=== PATIENT | male | born 1945 | race Caucasian/White ===

== ENCOUNTER 2021-07-27 01:52 | Outpatient (CLI) | payer MEDICARE, SELFPAY ==
[2021-07-27 10:23] LABS: Source Nasal/Nares
[2021-07-27 16:48] LABS: COVID-19 PCR Negative (Negative)
== END 2021-07-27 01:53 | disposition home or self-care (01) ==
PROVIDERS: Visit Provider Ophthalmology
DX: Z20.822 Contact with and (suspected) exposure to COVID-19 (principal); Z01.818 Encounter for other preprocedural examination
CPT/HCPCS: 87635

== ENCOUNTER 2021-07-30 08:00 | Day surgery (SDC) | payer MEDICARE, SELFPAY ==
[2021-07-30 08:27] VITALS: BP 164/104; PULSE 74; RESP 16; TEMP 36.1; O2SAT 97
[2021-07-30] MEDS: Tropicam./Phenyleph. (1/2.5%) 5 ML BTL OS ×3 (08:27→08:39)
--- NOTE | 2021-07-30 08:45 | W.ANESPRE ---
General Info Date of Service Date Performed: 07/30/21 Height: 5 ft 10 in Weight: 91 kg Body Mass Index (BMI): 28.8 Surgical Procedure: Operation Date: 07/30/21 10:40 Proposed Procedures Side Surgeon p Cataract Extraction with IOL Implant Left Xander Geronimo MD Meds Allergies and Home Medications Allergies Allergy/AdvReac Type Severity Reaction Status Date / Time No Known Allergies Allergy Unverified 07/30/21 08:24 Home Medication Medication Instructions Recorded apixaban 5 mg PO BID 07/25/21 capsaicin 1 applic TOPICAL TID 07/25/21 metoprolol succinate 100 mg PO TID 07/25/21 atorvastatin 40 mg PO DAILY 07/26/21 lisinopril 5 mg PO DAILY 07/30/21 Current Visit Medications: Current Medications Generic Name Dose Route Start Last Admin Trade Name Freq PRN Reason Stop Dose Admin Acetaminophen 1,000 mg 07/30/21 06:00 Acetaminophen 500 Mg Tab PO Q4H PRN PRN Miscellaneous Medication 0 ml 07/30/21 06:00 Prednisolone 1%, Moxifloxacin 0.5%, Nepafenac 0.1% 5ml Btl OS DIRECTED [facility] Miscellaneous Medication 0 ml 07/30/21 06:00 07/30/21 08:39 Tropicam./Phenyleph. (1/2.5%) 5 Ml Btl OS 1 drp DIRECTED NANY Administration Tetracaine HCl 0 ml 07/30/21 06:00 Tetracaine 0.5% 4 Ml Btl OS DIRECTED [facility] Medical History Medical History (Updated 07/30/21 @ 08:24 by Cece Newton) A-fib Alcohol dependence in remission Anticoagulated Dilated cardiomyopathy HLD (hyperlipidemia) HTN (hypertension) Hx of fracture of ankle hardware, right Nonspecific abnormal results of function study of kidney Osteoarthritis of left glenohumeral joint Osteoarthritis of right knee Other chronic nonalcoholic liver disease Pain in joint involving lower leg Systolic heart failure Surgical History Surgical History (Updated 07/30/21 @ 08:24 by Cece Newton) History of carpal tunnel release of both wrists History of intravascular stent placement Done at [facility] in [place] 2014. F/U @ local [place] Hx of knee surgery right Tobacco Smoking/Tobacco Use Status: Former Tobacco Use Alcohol Alcohol Intake: former Substance Use Substance use type: does not use Details: sobriety since 2003 Vital Signs and Lab Results Vital Signs Most Recent Vital Signs in EMR: Most Recent Vital Signs Temp Pulse Resp BP Pulse Ox 36.1 C L 74 16 164/104 H 97 07/30/21 08:27 07/30/21 08:27 07/30/21 08:27 07/30/21 08:27 07/30/21 08:27 Lab Results Blood Type / Crossmatch: No Data to Display Complete Blood Count: No Data to Display Complete Metabolic Panel: No Data to Display Liver Function Panel: No Data to Display Coagulation Panel: No Data to Display Cardiac Panel: No Data to Display Arterial Blood Gas: No Data to Display Venous Blood Gas: No Data to Display Pancreas Panel: No Data to Display Thyroid Panel: No Data to Display Infectious Disease: Coronavirus (COVID-19)(PCR) Negative (Negative) 07/27/21 08:46 07/27/21 Coronavirus 2019 Source Nasal/Nares 07/27/21 08:46 07/27/21 Blood Cultures: No Data to Display Toxicology Panel: No Data to Display Anesthesia Assessment and Plan Anesthesia History Personal History: No History of Anesthesia Complications Family History: No Family History of Anesthesia Complications Exercise Tolerance Exercise Tolerance: Metabolic Equivalents>4 Pertinent Negatives Pertinent Negatives: No Symptoms of GERD and No History of CVA/TIA Cardiac & Pulmonary Exam Cardiac Exam: Normal S1/S2 Heart Sounds Pulmonary Exam: Clear Bilateral Breath Sounds Implantable Cardiac Device Does patient have a Pacemaker or an ICD?: No Airway Exam Known Difficult Airway: No Mallampati Class: 3 Mouth Opening: Normal (> 3cm) Thyromental Distance: Greater than 3 cm Neck Range of Motion: Full ROM Neck Circumference: Normal Teeth Condition: Normal Dentition and Removable Dentures/Plates Lower (partial) ASA Classification ASA Score: ASA 3 Emergency Case?: No NPO Status NPO Status: NPO Clears >2 hours, Solids >8 hours Anesthesia Plan Resuscitation Status: Full Code Anesthesia Technique: MAC Anesthesia Airway Planned: Natural Airway Monitors Used: Standard Monitors Preoperative Comments:: Recent Echo at the [place]. Patient reported stable. Is in AF. Patient reports a nodule in the lung, indicates right side. Reports is stable for last 6 years and is scanned annually. Reports has issues at altitude (used to [place] out in [facility]). Reports ADLs otherwise not compromised.
[2021-07-30 09:04] VITALS: BMI 28.8
[2021-07-30] MEDS: Balanced Salt Soln.-PLUS 500 ML BAG (09:55)
[2021-07-30] MEDS: Tetracaine 0.5% 4 ML BTL OS (09:55)
[2021-07-30] MEDS: Duovisc Viscoelastic System EACH 1 EACH (09:56)
[2021-07-30] MEDS: Lidocaine 2% Jelly 6 ML SYR (09:56)
[2021-07-30] MEDS: Povidone-Iodine Ophth 30 ML BTL (09:58)
[2021-07-30 10:10] VITALS: BP 144/94; PULSE 68; RESP 16; TEMP 36.7; O2SAT 99
--- NOTE | 2021-07-30 10:14 | W.PM.DSUDISC ---
Discharge Plan Disposition Patient Disposition: HOME Condition: Good Discharge Details Attending Provider: Xander Geronimo Primary Care Provider: [facility] Home Meds and New Rx's Prescriptions: No Action metoprolol succinate 100 mg Tablet Extended Release 24 Hr 100 mg PO TID RF: 0 capsaicin 0.025 % Cream 1 applic TOPICAL TID RF: 0 apixaban 5 mg Tablet 5 mg PO BID RF: 0 atorvastatin 40 mg Tablet 40 mg PO DAILY RF: 0 lisinopril 5 mg Tablet 5 mg PO DAILY RF: 0 Discharge Instructions Stand Alone Forms: Post-op Topical Cataract, Galilea Courtney (DSU) Discharge Orders Discharge Orders: Discharge Order (Routine); Ordered 07/30/21 Ordered By: Xander Geronimo DS: Diagnosis Discharge Diagnosis (1) Cortical cataract of left eye: Status: Resolved (2) Nuclear sclerotic cataract of left eye: Status: Resolved (3) Posterior subcapsular age-related cataract of left eye: Status: Resolved
--- NOTE | 2021-07-30 10:16 | W.PM.OP ---
Date of service: 07/30/21 Time of Service: 10:16 Operative Note Operative Note DATE OF PROCEDURE: 07/30/21 PRE-OP DIAGNOSIS: Nuclear/cortical/posterior subcapsular cataract, left eye POST-OP DIAGNOSIS: same PROCEDURE: Cataract extraction using phacoemulsification with intraocular lens implant, left eye SURGEON: Xander Geronimo ANESTHESIA TYPE: Local By Surgeon and MAC Refer to Anesthesia Record PATHOLOGY: none sent COMPLICATIONS: None Patient was transported to: same day Patient's condition: stable Implants: Shahid and Shahid / [employer] Tecnis [id number] Indications: Progressive decreased vision due to cataract, left eye Procedure Description: CATARACT SURGERY OPERATIVE REPORT PREOPERATIVE DIAGNOSIS: 1. Nuclear/cortical/posterior subcapsular cataract, left eye POSTOPERATIVE DIAGNOSIS: Same OPERATION: 1. Cataract extraction using phacoemulsification with posterior chamber intraocular lens implant, left eye. IOL: IOL Centrifugal Station Operator/Model: Shahid & Shahid / TRUDI Tecnis [id number] IOL Power: + 20.5 diopters IOL Serial Number: [id number] Optic Diameter: 6.0 mm Haptic/Overall Diameter: 13.0 mm PHACO INFO: Johny [employer]!urion Vision System with OZil and Active Fluidics Cumulative Dispersed Energy (CDE): 11.96 seconds SURGEON: Xander Geronimo MD, CATARINA ANESTHESIA: Monitored A [facility] (MAC), with local sub-tenon's anesthetic infiltration COMPLICATIONS: None SPECIMENS: None INDICATIONS FOR PROCEDURE: The patient is a 76-year-old gentleman with history of diminished visual acuity in his left eye. He is noted to have a significant nuclear/cortical/posterior subcapsular cataract. The option of cataract surgery was offered to the patient and he wished to proceed. PROCEDURE: The correct surgical eye was identified and marked as the left eye and the pupil was dilated in the preoperative area using mydriatics and cycloplegics. The dilated pupil size was 7.0 mm. Oral sedation was administered in the form of an Imprimis MKO Melt (midazolam 3mg/ketamine 25mg/ondansetron 2mg). The patient was brought to the operating room where cardiopulmonary monitoring was instituted and surgical time-out was performed, confirming the correct operative eye and IOL power. Topical anesthesia was administered and ophthalmic povidone-iodine 5% was instilled into the conjunctival fornices. Lidocaine gel was applied to the cornea and the luis felipe-ocular area was prepped with Betadine 10% solution and draped in the usual sterile fashion for intraocular surgery, including an aperture drape. A Tegaderm transparent film dressing was cut in half and used to cover the lashes and lid margins. Care was taken to sequester the lashes and lid margins under the Tegaderm dressing. A lid speculum was placed between the lids of the operative eye and the Víctor-Sabra operating microscope was maneuvered into position. Frankie scissors were then used to make a conjunctival buttonhole approximately 6mm posterior to the limbus in the inferonasal quadrant. Blunt dissection was carried out to expose bare sclera, and a blunt-tipped sub-tenon?s anesthesia cannula was introduced and passed posteriorly along the globe where non-preserved plain lidocaine was injected into posterior sub-Tenon?s space. A sideport knife was used to make a paracentesis port superiorly/superiortemporally. Intraocular phenylephrine/lidocaine was injected int the anterior chamber.. The anterior chamber was filled with viscoelastic. A 2.4mm keratome knife was used to create a half-thickness groove at the limbus and then to construct a three-plane near-clear corneal tunnel extending 2.0mm into clear cornea at the 3:00 position. A flap was raised on the anterior capsule and capsulorhexis forceps were used to complete a continuous curvilinear capsulorhexis of 5.0 mm. Balanced salt solution was then used to perform cortical cleaving hydrodissection and nuclear hydrodelineation until the lens could be freely rotated within the capsular bag. The lens nucleus was then disassembled and removed within the capsular bag and iris plane using phacoemulsification. Residual cortical material was removed using the 45-degree angled silicone I/A tip with 0.3mm port. The posterior capsule was carefully polished to remove as much residual lens epithelial cells as safely possible. The capsular bag was then inflated and the anterior chamber deepened with viscoelastic. The lens implant described above was inserted into the capsular bag using the TRUDI [place] Injector. A Kuglen hook was used to dial the IOL into position. Residual viscoelastic was then removed first from posterior to the IOL, then from the anterior chamber using the I/A handpiece. The lens implant was noted to center nicely within the capsular bag. The incisions were stromally hydrated, and the anterior chamber was reformed using BSS. Then 0.5cc of moxifloxacin 1.0mg/ml were injected into the capsular bag and anterior chamber. The incisions were checked with a Weck spear and found to be secure. Several drops of ophthalmic povidone-iodine 5% were then applied to the eye followed by two drops of Imprimis combination prednisolone/moxifloxacin/nepafenac solution. The drapes were removed and a clear plastic protective eye shield was placed over the eye. The patient was then returned to Same Day Surgery in stable condition.
--- NOTE | 2021-07-30 10:37 | W.ANESPOSTOP ---
Postoperative Evaluation Date, Time and Location Date Performed: 07/30/21 Time Performed: 10:14 Patient Location: Day Surgery Unit Vital Signs Most Recent Imported Vital Signs: Most Recent Vital Signs Temp Pulse Resp BP Pulse Ox 36.7 C 68 16 144/94 H 99 07/30/21 10:10 07/30/21 10:10 07/30/21 10:10 07/30/21 10:10 07/30/21 10:10 Pain Score Most Recent Pain Score: Most Recent Pain Score Pain Level 0 07/30/21 10:10 Assessment Mental Status: Awake (Alert & Oriented to Patient Baseline) Airway and Respiratory Function: Patent airway with normal (patient baseline) respiratory exam Cardiovascular Function: Hemodynamically Stable Hydration Status: Adequately Hydrated Nausea & Vomiting: No Nausea or Vomiting Pain: Pt. Denies Any Pain Peripheral Nerve Block: Patient did not receive a nerve block
[2021-07-30 10:38] VITALS: BP 144/97; PULSE 85; RESP 16; TEMP 37.2; O2SAT 97
== END 2021-07-30 10:45 | disposition home or self-care (01) ==
PROVIDERS: Visit Provider Ophthalmology
PROC: (CPT 66984; principal; 2021-07-30 10:30)
DX: H25.042 Posterior subcapsular polar age-related cataract, left eye (principal); I48.91 Unspecified atrial fibrillation; I11.0 Hypertensive heart disease with heart failure; I50.20 Unspecified systolic (congestive) heart failure
CPT/HCPCS: 66984; V2632

== ENCOUNTER 2021-08-10 03:45 | Outpatient (CLI) | payer MEDICARE, SELFPAY ==
[2021-08-10 10:18] LABS: Source Nasal/Nares
[2021-08-10 13:21] LABS: COVID-19 PCR Negative (Negative)
== END 2021-08-10 03:46 | disposition home or self-care (01) ==
LOC: LBO 03:45
PROVIDERS: Visit Provider Ophthalmology
DX: Z20.822 Contact with and (suspected) exposure to COVID-19 (principal); Z01.818 Encounter for other preprocedural examination
CPT/HCPCS: 87635

== ENCOUNTER 2021-08-13 08:53 | Day surgery (SDC) | payer MEDICARE, SELFPAY ==
[2021-08-13] MEDS: Tropicam./Phenyleph. (1/2.5%) 5 ML BTL OD ×3 (09:13→09:24)
[2021-08-13 09:20] VITALS: BP 159/96; PULSE 107; RESP 16; TEMP 36.6; O2SAT 97
--- NOTE | 2021-08-13 10:15 | W.ANESPRE ---
General Info Date of Service Date Performed: 08/13/21 Height: 5 ft 10 in Weight: 89 kg Body Mass Index (BMI): 28.1 Surgical Procedure: Operation Date: 08/13/21 11:40 Proposed Procedures Side Surgeon p Cataract Extraction with IOL Implant Right Xander Geronimo MD Meds Allergies and Home Medications Allergies Allergy/AdvReac Type Severity Reaction Status Date / Time No Known Allergies Allergy Unverified 08/13/21 09:14 Home Medication Medication Instructions Recorded apixaban 5 mg PO BID 07/25/21 capsaicin 1 applic TOPICAL TID 07/25/21 metoprolol succinate 100 mg PO TID 07/25/21 atorvastatin 40 mg PO DAILY 07/26/21 lisinopril 5 mg PO DAILY 07/30/21 Current Visit Medications: Current Medications Generic Name Dose Route Start Last Admin Trade Name Freq PRN Reason Stop Dose Admin Acetaminophen 1,000 mg 08/13/21 06:00 Acetaminophen 500 Mg Tab PO Q4H PRN PRN Miscellaneous Medication 0 ml 08/13/21 06:00 Prednisolone 1%, Moxifloxacin 0.5%, Nepafenac 0.1% 5ml Btl OD DIRECTED [facility] Miscellaneous Medication 0 ml 08/13/21 06:00 08/13/21 09:24 Tropicam./Phenyleph. (1/2.5%) 5 Ml Btl OD 1 drp DIRECTED NANY Administration Tetracaine HCl 0 ml 08/13/21 06:00 Tetracaine 0.5% 4 Ml Btl OD DIRECTED NANY PFSH Active Problems Active Problems: Problem Status Onset Code Cortical cataract of left eye H26.9 Nuclear sclerotic cataract of left eye H25.12 Posterior subcapsular age-related cataract of left eye H25.042 Medical History Medical History A-fib Alcohol dependence in remission Anticoagulated Dilated cardiomyopathy HLD (hyperlipidemia) HTN (hypertension) Hx of fracture of ankle hardware, right Nonspecific abnormal results of function study of kidney Osteoarthritis of left glenohumeral joint Osteoarthritis of right knee Other chronic nonalcoholic liver disease Pain in joint involving lower leg Systolic heart failure Surgical History Surgical History (Updated 08/13/21 @ 09:14 by Cece Newton) History of carpal tunnel release of both wrists History of intravascular stent placement Done at [facility] in [place] 2015. F/U @ [facility] Hx of cataract removal with insertion of prosthetic lens Hx of knee surgery right Tobacco Smoking/Tobacco Use Status: Former Tobacco Use Alcohol Alcohol Intake: former Substance Use Substance use type: does not use Details: sobriety since 2003 Vital Signs and Lab Results Vital Signs Most Recent Vital Signs in EMR: Most Recent Vital Signs Temp Pulse Resp BP Pulse Ox 36.6 C 107 H 16 159/96 H 97 08/13/21 09:20 08/13/21 09:20 08/13/21 09:20 08/13/21 09:20 08/13/21 09:20 Lab Results Blood Type / Crossmatch: No Data to Display Complete Blood Count: No Data to Display Complete Metabolic Panel: No Data to Display Liver Function Panel: No Data to Display Coagulation Panel: No Data to Display Cardiac Panel: No Data to Display Arterial Blood Gas: No Data to Display Venous Blood Gas: No Data to Display Pancreas Panel: No Data to Display Thyroid Panel: No Data to Display Infectious Disease: Coronavirus (COVID-19)(PCR) Negative (Negative) 08/10/21 08:42 08/10/21 Coronavirus 2019 Source Nasal/Nares 08/10/21 08:42 08/10/21 Blood Cultures: No Data to Display Toxicology Panel: No Data to Display Anesthesia Assessment and Plan Anesthesia History Personal History: No History of Anesthesia Complications Family History: No Family History of Anesthesia Complications Exercise Tolerance Exercise Tolerance: Metabolic Equivalents>4 Pertinent Negatives Pertinent Negatives: No Symptoms of GERD, No Major Cardiovascular Symptoms or Complaints, No Major Pulmonary Symptoms or Complaints and No History of CVA/TIA Cardiac & Pulmonary Exam Cardiac Exam: Other (Hx atrial fibrillation ) Pulmonary Exam: Clear Bilateral Breath Sounds Implantable Cardiac Device Does patient have a Pacemaker or an ICD?: No Airway Exam Known Difficult Airway: No Mallampati Class: 3 Mouth Opening: Normal (> 3cm) Thyromental Distance: Greater than 3 cm Neck Range of Motion: Full ROM Neck Circumference: Normal Teeth Condition: Normal Dentition and Removable Dentures/Plates Lower (partial) ASA Classification ASA Score: ASA 2 Emergency Case?: No NPO Status NPO Status: NPO Clears >2 hours, Solids >8 hours Anesthesia Plan Resuscitation Status: Full Code Anesthesia Technique: MAC Anesthesia Airway Planned: Natural Airway Monitors Used: Standard Monitors
[2021-08-13 10:17] VITALS: BMI 28.1
[2021-08-13] MEDS: Tetracaine 0.5% 4 ML BTL OD (10:43)
[2021-08-13] MEDS: Balanced Salt Soln.-PLUS 500 ML BAG (10:44)
[2021-08-13] MEDS: Duovisc Viscoelastic System EACH 1 EACH (10:44)
[2021-08-13] MEDS: Lidocaine 2% Jelly 6 ML SYR (10:45)
[2021-08-13] MEDS: Povidone-Iodine Ophth 30 ML BTL (10:46)
[2021-08-13 11:02] VITALS: BP 134/93; PULSE 88; RESP 16; TEMP 36.5; O2SAT 97
--- NOTE | 2021-08-13 11:03 | W.PM.DSUDISC ---
Discharge Plan Disposition Patient Disposition: HOME Condition: Good Discharge Details Attending Provider: Xander Geronimo Primary Care Provider: [facility] Home Meds and New Rx's Prescriptions: No Action metoprolol succinate 100 mg Tablet Extended Release 24 Hr 100 mg PO TID RF: 0 capsaicin 0.025 % Cream 1 applic TOPICAL TID RF: 0 apixaban 5 mg Tablet 5 mg PO BID RF: 0 atorvastatin 40 mg Tablet 40 mg PO DAILY RF: 0 lisinopril 5 mg Tablet 5 mg PO DAILY RF: 0 Discharge Instructions Stand Alone Forms: Post-op Topical Cataract, Galilea Courtney (DSU) Discharge Orders Discharge Orders: Discharge Order (Routine); Ordered 08/13/21 Ordered By: Xander Geronimo DS: Diagnosis Discharge Diagnosis (1) Posterior subcapsular age-related cataract, right eye: Status: Resolved (2) Nuclear sclerotic cataract of right eye: Status: Resolved (3) Cortical cataract of right eye: Status: Resolved
--- NOTE | 2021-08-13 11:03 | W.ANESPOSTOP ---
Postoperative Evaluation Date, Time and Location Date Performed: 08/13/21 Time Performed: 11:03 Patient Location: Day Surgery Unit Vital Signs Most Recent Imported Vital Signs: Most Recent Vital Signs Temp Pulse Resp BP Pulse Ox 36.6 C 107 H 16 159/96 H 97 08/13/21 09:20 08/13/21 09:20 08/13/21 09:20 08/13/21 09:20 08/13/21 09:20 Most Recent Manually Entered Vital Signs: Adult Blood Pressure: 129/96 Heart Rate: 94 Respirations: 12 Oxygen Saturation (%): 96 Temperature (C): 36.7 C Pain Score (0-10 Scale): 0 Pain Score Most Recent Pain Score: Most Recent Pain Score Pain Level 0 08/13/21 09:20 Assessment Mental Status: Awake (Alert & Oriented to Patient Baseline) Airway and Respiratory Function: Patent airway with normal (patient baseline) respiratory exam Cardiovascular Function: Hemodynamically Stable Hydration Status: Adequately Hydrated Nausea & Vomiting: No Nausea or Vomiting Pain: Pt. Denies Any Pain Peripheral Nerve Block: Patient did not receive a nerve block
--- NOTE | 2021-08-13 11:04 | W.PM.OP ---
Date of service: 08/13/21 Time of Service: 11:04 Operative Note Operative Note DATE OF PROCEDURE: 08/13/21 PRE-OP DIAGNOSIS: Nuclear/cortical/posterior subcapsular cataract, right eye POST-OP DIAGNOSIS: same PROCEDURE: Cataract extraction using phacoemulsification with intraocular lens implant, right eye SURGEON: Xander Geronimo ANESTHESIA TYPE: Local By Surgeon and MAC Refer to Anesthesia Record ESTIMATED BLOOD LOSS: 0 PATHOLOGY: none sent COMPLICATIONS: None Patient was transported to: same day Patient's condition: stable Implants: Shahid & Shahid/TRUDI Tecnis [id number] Indications: Progressive visual loss due to cataract, right eye Procedure Description: CATARACT SURGERY OPERATIVE REPORT PREOPERATIVE DIAGNOSIS: 1. Nuclear/cortical/posterior subcapsular cataract, right eye POSTOPERATIVE DIAGNOSIS: Same OPERATION: 1. Cataract extraction using phacoemulsification with posterior chamber intraocular lens implant, right eye. IOL: IOL Tape Fastener Machine Operator/Model: Shahid & Shahid / TRUDI Tecnis [id number] IOL Power: + 21.5 diopters IOL Serial Number: [id number] Optic Diameter: 6.0mm Haptic/Overall Diameter: 13.0mm PHACO INFO: Johny Clearwireurion Vision System with OZil and Active Fluidics Cumulative Dispersed Energy (CDE): 8.31 seconds SURGEON: Xander Geronimo MD, CATARINA ANESTHESIA: Monitored Anesthesia Care (MAC), with local sub-tenon's anesthetic infiltration COMPLICATIONS: None SPECIMENS: None INDICATIONS FOR PROCEDURE: The patient is a 76-year-old male with history of diminished visual acuity in both eyes secondary to development of bilateral nuclear/cortical/posterior subcapsular cataract. He is significantly symptomatic that he desires cataract surgery and attempt to improve and maximize his vision. He has already undergone cataract surgery in the left eye and is doing well postoperatively. He now presents for cataract surgery in the right eye. PROCEDURE: The correct surgical eye was identified and marked as the right eye and the pupil was dilated in the preoperative area using mydriatics and cycloplegics. The dilated pupil size was 7.0 mm. Oral sedation was administered in the form of an Imprimis MKO Melt (midazolam 3mg/ketamine 25mg/ondansetron 2mg). The patient was brought to the operating room where cardiopulmonary monitoring was instituted and surgical time-out was performed, confirming the correct operative eye and IOL power. Topical anesthesia was administered and ophthalmic povidone-iodine 5% was instilled into the conjunctival fornices. Lidocaine gel was applied to the cornea and the luis felipe-ocular area was prepped with Betadine 10% solution and draped in the usual sterile fashion for intraocular surgery, including an aperture drape. A Tegaderm transparent film dressing was cut in half and used to cover the lashes and lid margins. Care was taken to sequester the lashes and lid margins under the Tegaderm dressing. A lid speculum was placed between the lids of the operative eye and the Víctor-Sabra operating microscope was maneuvered into position. Frankie scissors were then used to make a conjunctival buttonhole approximately 6mm posterior to the limbus in the inferonasal quadrant. Blunt dissection was carried out to expose bare sclera, and a blunt-tipped sub-tenon?s anesthesia cannula was introduced and passed posteriorly along the globe where non-preserved plain lidocaine was injected into posterior sub-Tenon?s space. A sideport knife was used to make a paracentesis port inferotemporally. Intraocular phenylephrine/lidocaine was injected into the anterior chamber. The anterior chamber was filled with viscoelastic. A 2.4mm keratome knife was used to create a half-thickness groove at the limbus and then to construct a three-plane near-clear corneal tunnel extending 2.0mm into clear cornea superiortemporally. A flap was raised on the anterior capsule and capsulorhexis forceps were used to complete a continuous curvilinear capsulorhexis of 5.0 mm. Balanced salt solution was then used to perform cortical cleaving hydrodissection and nuclear hydrodelineation until the lens could be freely rotated within the capsular bag. The lens nucleus was then disassembled and removed within the capsular bag and iris plane using phacoemulsification. Residual cortical material was removed using the I/A handpiece. The posterior capsule was carefully polished to remove as much residual lens epithelial cells as safely possible. The capsular bag was then inflated and the anterior chamber deepened with viscoelastic. The lens implant described above was inserted into the capsular bag using the TRUDI [place] Injector. A Kuglen hook was used to dial the IOL into position. Residual viscoelastic was then removed first from posterior to the IOL, then from the anterior chamber using the I/A handpiece. The lens implant was noted to center nicely within the capsular bag. The incisions were stromally hydrated, and the anterior chamber was reformed using BSS. Then 0.5cc of moxifloxacin 1.0mg/ml were injected into the capsular bag and anterior chamber. The incisions were checked with a Weck spear and found to be secure. Several drops of ophthalmic povidone-iodine 5% were then applied to the eye followed by two drops of Imprimis combination prednisolone/moxifloxacin/nepafenac solution. The drapes were removed and a clear plastic protective eye shield was placed over the eye. The patient was then returned to Same Day Surgery in stable condition.
[2021-08-13 11:05] VITALS: BP 129/96; PULSE 94; RESP 12; TEMPC 36.7; O2SAT 96
[2021-08-13 11:30] VITALS: BP 123/71; PULSE 87; RESP 16; TEMP 36.6; O2SAT 98
== END 2021-08-13 11:43 | disposition home or self-care (01) ==
PROVIDERS: Visit Provider Ophthalmology
PROC: (CPT 66984; principal; 2021-08-13 11:30)
DX: H25.041 Posterior subcapsular polar age-related cataract, right eye (principal); I48.91 Unspecified atrial fibrillation; I50.20 Unspecified systolic (congestive) heart failure; I11.0 Hypertensive heart disease with heart failure
CPT/HCPCS: 66984; V2632